=== PATIENT | male | born 1950 | race Caucasian/White ===

== ENCOUNTER 2023-05-29 04:29 | Day surgery (SDC) | payer OTHER ==
[2023-05-23 16:43] VITALS: BMI 27.6
[2023-05-29] MEDS ORDERED: LIDOCAINE HCL/PF 2% SDV 5ML VIAL ONE (07:25)
[2023-05-29] MEDS ORDERED: PROPOFOL 20 ML ONE (07:25)
[2023-05-29] MEDS ORDERED: MIDAZOLAM HCL 2 MG/2 ML SINGLE DOSE VIAL ONE (07:25)
[2023-05-29] MEDS ORDERED: DEXAMETHASONE SOD PHOSPHATE 4 MG/1 ML VIAL ONE (07:58)
[2023-05-29] MEDS: ceFAZolin SODIUM 1 GM VIAL IVPB ONE (07:58)
[2023-05-29] MEDS ORDERED: ceFAZolin SODIUM 1 GM VIAL ONE (07:58)
[2023-05-29] MEDS ORDERED: ONDANSETRON 4 MG/2 ML VIAL ONE (08:08)
[2023-05-29] MEDS ORDERED: KETOROLAC TROMETHAMINE 30 MG/1 ML VIAL ONE (08:08)
[2023-05-29] MEDS ORDERED: oxyCODONE HCL 5 MG TABLET PO PRN ×2 (08:23→08:34)
[2023-05-29] MEDS ORDERED: DEXTROSE 5%-0.45% SALINE 1,000 ML IV SCH (08:30)
[2023-05-29] MEDS ORDERED: ONDANSETRON 4 MG/2 ML VIAL IVPUSH PRN (08:34)
[2023-05-29] MEDS ORDERED: PROMETHAZINE HCL 25 MG/1 ML VIAL IVPB PRN (08:34)
[2023-05-29] MEDS ORDERED: LACTATED RINGERS SOLUTION 1,000 ML IV SCH (08:45)
[2023-05-29] MEDS: ACETAMINOPHEN 1000 MG/100 ML BAG IVPB ONE (08:52)
[2023-05-29 10:03] VITALS: RESP 16
[2023-05-29] MEDS: oxyCODONE HCL 5 MG TABLET PO ONE (10:04)
[2023-05-29] MEDS ORDERED: oxyCODONE HCL 5 MG TABLET ONE (10:08)
[2023-05-29 12:13] VITALS: BP 135/53; PULSE 63; TEMP 97.5
== END 2023-05-29 12:00 | disposition home or self-care (01) ==
LOC: JASU-SURG 04:29
PROVIDERS: ATTEND Urology
PROC: 0TCB8ZZ Extirpation of Matter from Bladder, Via Natural or Artificial Opening Endoscopic (ICD-10-PCS; principal; 2023-05-29 07:30)
DX: N21.0 Calculus in bladder (principal); N40.0 Benign prostatic hyperplasia without lower urinary tract symptoms
CPT/HCPCS: 36415; 82360; 82962; 88300-TC; 93005; 93010; 94760; C1758; J0131